=== PATIENT | female | born 2000 | race Caucasian/White ===

== ENCOUNTER 2020-06-26 18:32 | Emergency (ER) | payer OTHER ==
[2020-06-26] MEDS ORDERED: DIPH,PERTUS(ACELL)TETVAC-LF 0.5 ML VIAL IM ONE (18:50)
[2020-06-26] MEDS ORDERED: LIDOCAINE 1% INJ 10MG/ML (20 ML MDV) SQ ONE (18:50)
--- NOTE | 2020-06-26 19:44 | ED ---
Wound/Laceration HPI - General Chief Complaint: Wound/Laceration Stated Complaint: Cut leg Source: patient, RN notes reviewed, old records reviewed Mode of arrival: ambulatory Limitations: no limitations - History of Present Illness Initial Comments: 20-year-old female presents return today with a laceration of her right thigh. Patient reports that she cut it on a metal sheets. She reports that it was duct work that her boyfriend was trying to place in the basement. She reports that the duct work came down and for cut her leg. Her tetanus shot is not up-to-date. She reports normal sensation to leg and full rom of leg. - Related Data Allergies Allergy/AdvReac Type Severity Reaction Status Date / Time No Known Allergies Allergy Verified 06/26/20 18:36 Review of Systems ROS Statement: Those systems with pertinent positive or pertinent negative responses have been documented in the HPI. ROS Other: All systems not noted in ROS Statement are negative. Past Medical History Past Medical History: No Reported History History of Any Multi-Drug Resistant Organisms: None Reported Past Surgical History: No Surgical Hx Reported Smoking Status: Never smoker Past Alcohol Use History: None Reported Past Drug Use History: None Reported General Exam - General Exam Comments Initial Comments: 20-year-old female. Alert and oriented. No distress. Limitations: no limitations General appearance: alert, in no apparent distress Head exam: Present: atraumatic, normocephalic, normal inspection Eye exam: Present: normal appearance, PERRL, EOMI. Absent: scleral icterus, conjunctival injection, periorbital swelling ENT exam: Present: normal exam, mucous membranes moist Neck exam: Present: normal inspection. Absent: tenderness, meningismus, lymphadenopathy Respiratory exam: Present: normal lung sounds bilaterally. Absent: respiratory distress, wheezes, rales, rhonchi, stridor Cardiovascular Exam: Present: regular rate, normal rhythm, normal heart sounds. Absent: systolic murmur, diastolic murmur, rubs, gallop, clicks Extremities exam: Present: normal inspection, full ROM, normal capillary refill, other (Patient is a 4 cm laceration over the right anterior thigh. Full range motion of the knee noted.). Absent: tenderness, pedal edema, joint swelling, calf tenderness Back exam: Present: normal inspection Course Vital Signs 06/26/20 06/26/20 18:34 19:54 Temperature 98.7 F 98.4 F Pulse Rate 90 71 Respiratory 20 18 Rate Blood Pressure 122/78 122/72 O2 Sat by Pulse 99 97 Oximetry Procedures - Laceration Laceration #1 Site: lower extremity (Right thigh) Size (cm): 4 Depth: simple, single layer Anesthetic Used: lidocaine 1% Anesthesia Technique: local infiltration Amount (mls): 8 Pre-repair: wound explored, irrigated extensively Type of Sutures: nylon Size of Sutures: 5-0 Number of Sutures: 8 Technique: simple, interrupted Patient Tolerated Procedure: well, no complications Medical Decision Making - Medical Decision Making 20-year-old female presents for shortness. Laceration of the right thigh. She was cut with metal sheet. She was given tetanus shot. Wound was thoroughly irrigated and closed with 8 sutures. Discussed monitoring for infection. All questions were answered. Disposition Clinical Impression: Leg laceration Disposition: HOME SELF-CARE Condition: Good Instructions (If sedation given, give patient instructions): Care For Your Stit ches (ED) Additional Instructions: Please return to the emergency room in 8-10 days to have sutures removed. Please leave wound covered for the first 24-48 hours and then leave open to air after that time. Please use clean soap and water to clean the suture area to prevent scabbing over the top of your sutures. Please watch for any signs of infection which may include but not limited to increased pain, swelling, redness, fever or chills. Please return to the emergency room if any signs of infection do occur. Please return to the emergency room for any other concerns or complications. Is patient prescribed a controlled substance at d/c from ED?: No Referrals: Chris Gonzales DO [Primary Care Provider] - 1-2 days Time of Disposition: 19:44
[2020-06-26 19:54] VITALS: BP 122/72; PULSE 71; RESP 18; TEMP 98.4
== END 2020-06-26 19:54 | disposition home or self-care (01) ==
LOC: EC 18:32
DX: S71.111A Laceration without foreign body, right thigh, initial encounter (principal); Z23 Encounter for immunization; W26.8XXA Contact with other sharp object(s), not elsewhere classified, initial encounter; Y93.89 Activity, other specified; Y92.009 Unspecified place in unspecified non-institutional (private) residence as the place of occurrence of the external cause
CPT/HCPCS: 90715; 99283; 90471; 12002; J2001

== ENCOUNTER 2022-07-09 07:04 | Inpatient (IN) | payer BC, OTHER ==
[2022-07-09] MEDS ORDERED: KETOROLAC 15 MG/ML 1 ML VIAL IVP STA (07:56)
[2022-07-09] MEDS ORDERED: SODIUM CHLORIDE 0.9% 1,000 ML IV STA (07:56)
[2022-07-09] MEDS ORDERED: ONDANSETRON 4 MG/2 ML VIAL IVP STA (07:57)
[2022-07-09 08:00] LABS: Basophils % (A) 0 %; Eosinophils # (A) 0.1 k/uL (0-0.7); Eosinophils % (A) 1 %; HCT 40.2 % (34.0-46.0); Lymphocytes # (A) 0.9 k/uL (1.0-4.8); Lymphocytes % (A) 7 %; MCH 32.1 pg (25.0-35.0); MCHC 34.9 g/dL (31.0-37.0); MCV 91.8 fL (80.0-100.0); Mean Platelet Volume 6.5; Monocytes # (A) 0.5 k/uL (0-1.0); Monocytes % (A) 4 %; Neutrophils # (A) 11.5 k/uL (1.3-7.7); Neutrophils % (A) 88 %; Platelet Count 252 k/uL (150-450); RBC 4.37 m/uL (3.80-5.40); RDW 12.5 % (11.5-15.5); WBC 13.1 k/uL (3.8-10.6)
[2022-07-09 08:15] LABS: INR 0.9 (<1.2); Prothrombin Time 9.9 sec (9.0-12.0)
[2022-07-09 08:18] LABS: ALT 15 U/L (4-34); AST 28 U/L (14-36); African American GFR (CKD) >90 (>60 ml/min/1.73 sqM); Albumin 4.5 g/dL (3.5-5.0); Alkaline Phosphatase 75 U/L (38-126); Anion Gap 13 mmol/L; Blood Urea Nitrogen 11 mg/dL (7-17); Calcium 8.8 mg/dL (8.4-10.2); Carbon Dioxide 20 mmol/L (22-30); Chloride 108 mmol/L (98-107); Glucose 100 mg/dL (74-99); Lipase 42 U/L (23-300); Non-African American GFR(CKD) >90 (>60 ml/min/1.73 sqM); Potassium 4.1 mmol/L (3.5-5.1); Sodium 141 mmol/L (137-145); Total Bilirubin 0.4 mg/dL (0.2-1.3); Total Protein 7.4 g/dL (6.3-8.2)
--- NOTE | 2022-07-09 08:45 | ED ---
Abdominal Pain HPI - General Chief Complaint: Abdominal Pain Stated Complaint: Abd Pain Time Seen by Provider: 07/09/22 07:05 Source: patient, RN notes reviewed, old records reviewed Mode of arrival: ambulatory Limitations: no limitations - History of Present Illness Initial Comments: Patient is a healthy 22-year-old female returning to the emergency Department with complaints of right sided abdominal pain for 2 days. Patient states it started yesterday morning, has been increasing in intensity throughout the day so she came in for evaluation. She did have nausea and vomiting this morning. Patient does admit to drinking alcohol yesterday however her belly pain started before this. She denies any surgical history of her abdomen. She denies being however states is always a possibility. He denies any fevers or chills, no chest pain or shortness of breath. She admits to normal bowel movements. He denies any radiation of this pain. Currently rates the pain about a 6/10. Patient has no further complaints. - Related Data Home Medications Medication Instructions Recorded Confirmed No Known Home Medications 07/09/22 07/09/22 Allergies Allergy/AdvReac Type Severity Reaction Status Date / Time No Known Allergies Allergy Verified 07/09/22 09:11 Review of Systems ROS Statement: Those systems with pertinent positive or pertinent negative responses have been documented in the HPI. ROS Other: All systems not noted in ROS Statement are negative. Past Medical History Past Medical History: No Reported History History of Any Multi-Drug Resistant Organisms: None Reported Past Surgical History: No Surgical Hx Reported Past Psychological History: No Psychological Hx Reported Smoking Status: Never smoker Past Alcohol Use History: None Reported Past Drug Use History: None Reported General Exam - General Exam Comments Initial Comments: GENERAL: Patient is well-developed and well-nourished. Patient is nontoxic and in no acute distress. HEAD: Atraumatic, normocephalic. EYES: Pupils equal round and reactive to light, extraocular movements intact, sclera anicteric, conjunctiva are normal. Eyelids were unremarkable. ENT: Nares patent, oropharynx clear without exudates. Moist mucous membranes. NECK: Normal range of motion, supple without lymphadenopathy or JVD. LUNGS: Unlabored respirations. Breath sounds clear to auscultation bilaterally and equal. No wheezes rales or rhonchi. HEART: Regular rate and rhythm without murmurs, rubs or gallops. ABDOMEN: Soft, tender to palpation of the right lower quadrant, positive guarding and rebound. normoactive bowel sounds. No masses appreciated. : Deferred MUSCULOSKELETAL: Normal extremities with adequate strength and normal range of motion, no pitting or edema. No clubbing or cyanosis. NEUROLOGICAL: Patient is alert and oriented x 3. Symmetrical smile. Normal speech, normal gait. PSYCH: Normal mood, normal affect. SKIN: Warm, Dry, normal turgor, no rashes or lesions noted. Limitations: no limitations Course Vital Signs 07/09/22 07/09/22 07:08 09:33 Temperature 98.7 F Pulse Rate 112 H 92 Respiratory 18 15 Rate Blood Pressure 125/75 120/76 O2 Sat by Pulse 99 98 Oximetry Medical Decision Making - Medical Decision Making Patient is a 22-year-old female here with right lower quadrant pain, nausea and vomiting 2 days. No surgical history. Laboratory studies show a leukocytosis at 13.1, lactic acid is normal. CT the abdomen and pelvis shows findings compatible with acute appendicitis with a 9 mm appendicolith at the base of the appendix. Moderate severe surrounding inflammatory change. I spoke with Dr. Arias who accepts admission. We'll keep patient NPO with plans for surgery later this afternoon. We'll give dose of Zosyn. - Lab Data Result diagrams: 07/09/22 07:41 07/09/22 07:41 Lab Results 07/09/22 07/09/22 07/09/22 Range/Units 07:41 07:41 07:41 WBC 13.1 H (3.8-10.6) k/uL RBC 4.37 (3.80-5.40) m/uL Hgb 14.0 (11.4-16.0) gm/dL Hct 40.2 (34.0-46.0) % MCV 91.8 (80.0-100.0) fL MCH 32.1 (25.0-35.0) pg MCHC 34.9 (31.0-37.0) g/dL RDW 12.5 (11.5-15.5) % Plt Count 252 (150-450) k/uL MPV 6.5 Neutrophils % 88 % Lymphocytes % 7 % Monocytes % 4 % Eosinophils % 1 % Basophils % 0 % Neutrophils # 11.5 H (1.3-7.7) k/uL Lymphocytes # 0.9 L (1.0-4.8) k/uL Monocytes # 0.5 (0-1.0) k/uL Eosinophils # 0.1 (0-0.7) k/uL Basophils # 0.0 (0-0.2) k/uL PT 9.9 (9.0-12.0) sec INR 0.9 (<1.2) APTT 27.0 (22.0-30.0) sec Sodium 141 (137-145) mmol/L Potassium 4.1 (3.5-5.1) mmol/L Chloride 108 H (98-107) mmol/L Carbon Dioxide 20 L (22-30) mmol/L Anion Gap 13 mmol/L BUN 11 (7-17) mg/dL Creatinine 0.65 (0.52-1.04) mg/dL Est GFR (CKD-EPI)AfAm >90 (>60 ml/min/1.73 sqM) Est GFR (CKD-EPI)NonAf >90 (>60 ml/min/1.73 sqM) Glucose 100 H (74-99) mg/dL Plasma Lactic Acid Asael (0.7-2.0) mmol/L Calcium 8.8 (8.4-10.2) mg/dL Total Bilirubin 0.4 (0.2-1.3) mg/dL AST 28 (14-36) U/L ALT 15 (4-34) U/L Alkaline Phosphatase 75 (38-126) U/L Total Protein 7.4 (6.3-8.2) g/dL Albumin 4.5 (3.5-5.0) g/dL Lipase 42 (23-300) U/L 07/09/22 Range/Units 08:13 WBC (3.8-10.6) k/uL RBC (3.80-5.40) m/uL Hgb (11.4-16.0) gm/dL Hct (34.0-46.0) % MCV (80.0-100.0) fL MCH (25.0-35.0) pg MCHC (31.0-37.0) g/dL RDW (11.5-15.5) % Plt Count (150-450) k/uL MPV Neutrophils % % Lymphocytes % % Monocytes % % Eosinophils % % Basophils % % Neutrophils # (1.3-7.7) k/uL Lymphocytes # (1.0-4.8) k/uL Monocytes # (0-1.0) k/uL Eosinophils # (0-0.7) k/uL Basophils # (0-0.2) k/uL PT (9.0-12.0) sec INR (<1.2) APTT (22.0-30.0) sec Sodium (137-145) mmol/L Potassium (3.5-5.1) mmol/L Chloride (98-107) mmol/L Carbon Dioxide (22-30) mmol/L Anion Gap mmol/L BUN (7-17) mg/dL Creatinine (0.52-1.04) mg/dL Est GFR (CKD-EPI)AfAm (>60 ml/min/1.73 sqM) Est GFR (CKD-EPI)NonAf (>60 ml/min/1.73 sqM) Glucose (74-99) mg/dL Plasma Lactic Acid Asael 1.6 (0.7-2.0) mmol/L Calcium (8.4-10.2) mg/dL Total Bilirubin (0.2-1.3) mg/dL AST (14-36) U/L ALT (4-34) U/L Alkaline Phosphatase (38-126) U/L Total Protein (6.3-8.2) g/dL Albumin (3.5-5.0) g/dL Lipase (23-300) U/L Disposition Clinical Impression: Acute appendicitis Disposition: ADMITTED IP TO THIS [facility] Condition: Stable Referrals: None,Stated [Primary Care Provider] - 1-2 days Decision Date: 07/09/22 Decision Time: 09:45
--- NOTE | 2022-07-09 09:17 | CT ---
EXAMINATION TYPE: CT abdomen pelvis w con DATE OF EXAM: 07/09/2022 COMPARISON: NONE HISTORY: 22-year-old female with right lower quadrant pain with nausea and vomiting TECHNIQUE: Contiguous axial scanning of the abdomen and pelvis following administration of 100 ml Iso soy 300 IV contrast. Delayed images through the kidneys and coronal/sagittal reconstructions perform ed. CT DLP: 790.4 mGycm Automated exposure control for dose reduction was used. FINDINGS: Normal size without pericardial effusion. Lung bases clear without pleural effusion. Liver borderline enlarged at 17.8 cm. No focal lesion. The venous system is patent. No biliary ductal dilatation. Gallbladder, adrenal glands, kidneys, spleen, and pancreas within normal limits. No dilated small bowel or free air. There is a 9 mm stone at the base of the appendix. The appendix is fluid-filled, dilated up to 1.2 cm , and inflamed. Moderate to severe surrounding inflammatory fat stranding. Some adjacent right lower quadrant reactive mesenteric nodes measuring up to 1.2 cm. Mild stool burden. There is [id number] pelvic free fluid that in part be physiologic. Tiny phle bolith right side of the pelvis. Uterus anteverted. Both ovaries are visualized. There is a crenulate d peripherally enhancing 1.9 cm cyst right ovary suggesting a corpus luteum. 1.9 cm dominant follicle left ovary. Arcuate configuration of the uterus. Bones: No osseous destructive process. Mild degenerative disc disease L5-S1 suggested. IMPRESSION: FINDINGS COMPATIBLE WITH ACUTE APPENDICITIS WITH A 9 MM APPENDICOLITH AT THE BASE OF THE APPENDIX. MO DERATE TO SEVERE SURROUNDING INFLAMMATORY CHANGE AND MILD PELVIC FREE FLUID. NO FREE AIR OR ABSCESS.
[2022-07-09] MEDS ORDERED: NALOXONE 0.4 MG/ML 1 ML VIAL IV PRN (09:42)
[2022-07-09] MEDS ORDERED: PIPERACILLIN-TAZOBACTAM 3.375 GM in SODIUM CHLORIDE 0.9% 100 ML IVPB STA (09:43)
[2022-07-09 09:56] LABS: Appearance,Urine Clear (Clear); Bilirubin,Urine Negative (Negative); Blood,Urine Negative (Negative); Color,Urine Light Yellow; Glucose,Urine (UA) Negative (Negative); Ketones,Urine 2+ (Negative); Leukocyte Esterase,Urine Negative (Negative); Nitrite,Urine Negative (Negative); Protein,Urine Trace (Negative); Urobilinogen,Urine <2.0 mg/dL (<2.0)
[2022-07-09 10:15] LABS: Specific Gravity,Urine >1.050 (1.001-1.035)
[2022-07-09] MEDS: SODIUM CHLORIDE 0.9% 1,000 ML IV SCH (10:40)
[2022-07-09] MEDS: ONDANSETRON 4 MG/2 ML VIAL IVP PRN ×2 (12:29→21:50)
[2022-07-09] MEDS: MORPHINE SULFATE 4 MG/ML SYRINGE IV PRN ×2 (12:30→16:41)
[2022-07-09] MEDS ORDERED: ONDANSETRON 4 MG/2 ML VIAL IVP ONE (14:28)
[2022-07-09] MEDS ORDERED: DEXAMETHASONE SOD PHOSPHATE 4 MG/ML 1 ML VIAL IV ONE (14:28)
--- NOTE | 2022-07-09 14:29 | P.GSHP ---
History of Present Illness H&P Date: 07/09/22 CHIEF COMPLAINT: Right lower quadrant abdominal pain with appendicitis for over 1 day. HISTORY OF PRESENT ILLNESS: The patient is a previously healthy 22-year-old female who presents with over 1.5 day history of periumbilical with right lower quadrant abdominal pain that is crampy dull ache in nature. No reports of prior abdominal pain. She presented with CT abdomen and pelvis consistent with dilated appendix suspicious for appendicitis hence general surgery admission. PAST MEDICAL HISTORY: See list and reviewed PAST SURGICAL HISTORY: See list and reviewed CURRENT MEDICATIONS: See list and reviewed ALLERGIES: See list and reviewed SOCIAL HISTORY: See list and reviewed FAMILY HISTORY: See list and reviewed REVIEW OF ORGAN SYSTEMS: CONSTITUTIONAL: Present fever, no chills. Denies recent weight loss. HEENT: Denies any trouble with vision, hearing or nosebleeds. No difficulty swallowing. LYMPHATIC: The patient denies any lumps and bumps around the neck. ENDOCRINE: Denies any thyroid disorders. Denies any blood sugar glucose intolerance. RESPIRATORY: Denies shortness of breath including chronic cough. CARDIOVASCULAR: Denies history of chest pain with exertion. GASTROINTESTINAL: Denies regurgitation of bile at night as well as intermittent nausea. No blood in stools. GENITOURINARY: Denies any blood in urine or increased urinary frequency. MUSCULOSKELETAL: Denies current joint arthritis. NEUROLOGIC: Denies any numbness or tingling along the distal extremities. No seizure disorders or headaches. PSYCHIATRIC: Denies any depression or suicidal ideation. HEMATOLOGIC: Denies any abnormal bleeding or bruising. PHYSICAL EXAMINATION: VITALS: Reviewed. GENERAL: Well-developed and in no acute distress. Pleasant. HEENT: No sclera icterus. Extraocular movements grossly intact. Moist buccal mucosa. Head is atraumatic, normocephalic. Hears conversational speech. No nasal drainage. NECK: Supple without lymphadenopathy. No JV distention. CHEST: Non-labored respirations and equal bilateral excursions. CARDIOVASCULAR: Regular rate and rhythm. Palpable 2+ radial pulses. ABDOMEN: Soft, tender at the right lower quadrant without guarding. MUSCULOSKELETAL: No clubbing, cyanosis or edema. NEUROLOGIC: No focal or lateralizing signs. PSYCH: Appropriate affect. Alert and oriented to person, place and time. SKIN: Well perfused. Good skin turgor. LABS: Reviewed. White blood cell count elevated STUDIES: CT of the abdomen and pelvis reviewed with findings consistent with appendicitis and appendicolith ASSESSMENT: 1. Right lower quadrant pain. 2. Appendicitis with sepsis 3. Leukocytosis. PLAN: 1. I have discussed benefits and risks of robotic appendectomy. 2. Bilateral SCDs. 3. Antibiotics intravenous Thank you very much for allowing me to participate in the care of your patient. Past Medical History Past Medical History: No Reported History History of Any Multi-Drug Resistant Organisms: None Reported Past Surgical History: No Surgical Hx Reported Past Psychological History: No Psychological Hx Reported Smoking Status: Never smoker Past Alcohol Use History: None Reported Past Drug Use History: None Reported Medications and Allergies Home Medications Medication Instructions Recorded Confirmed Type No Known Home Medications 07/09/22 07/09/22 History Allergies Allergy/AdvReac Type Severity Reaction Status Date / Time No Known Allergies Allergy Verified 07/09/22 09:11 Surgical - Exam Vital Signs Temp Pulse Resp BP Pulse Ox 98.7 F 112 H 18 125/75 99 07/09/22 07:08 07/09/22 07:08 07/09/22 07:08 07/09/22 07:08 07/09/22 07:08 Results - Labs 07/09/22 07:41 07/09/22 07:41 Abnormal Lab Results - Last 24 Hours (Table) 07/09/22 07/09/22 07/09/22 Range/Units 07:41 07:41 09:00 WBC 13.1 H (3.8-10.6) k/uL Neutrophils # 11.5 H (1.3-7.7) k/uL Lymphocytes # 0.9 L (1.0-4.8) k/uL Chloride 108 H (98-107) mmol/L Carbon Dioxide 20 L (22-30) mmol/L Glucose 100 H (74-99) mg/dL Ur Specific Nogal >1.050 H (1.001-1.035) Urine Protein Trace H (Negative) Urine Ketones 2+ H (Negative) Diabetes panel 07/09/22 Range/Units 07:41 Sodium 141 (137-145) mmol/L Potassium 4.1 (3.5-5.1) mmol/L Chloride 108 H (98-107) mmol/L Carbon Dioxide 20 L (22-30) mmol/L BUN 11 (7-17) mg/dL Creatinine 0.65 (0.52-1.04) mg/dL Glucose 100 H (74-99) mg/dL Calcium 8.8 (8.4-10.2) mg/dL AST 28 (14-36) U/L ALT 15 (4-34) U/L Alkaline Phosphatase 75 (38-126) U/L Total Protein 7.4 (6.3-8.2) g/dL Albumin 4.5 (3.5-5.0) g/dL Calcium panel 07/09/22 Range/Units 07:41 Calcium 8.8 (8.4-10.2) mg/dL Albumin 4.5 (3.5-5.0) g/dL Pituitary panel 07/09/22 Range/Units 07:41 Sodium 141 (137-145) mmol/L Potassium 4.1 (3.5-5.1) mmol/L Chloride 108 H (98-107) mmol/L Carbon Dioxide 20 L (22-30) mmol/L BUN 11 (7-17) mg/dL Creatinine 0.65 (0.52-1.04) mg/dL Glucose 100 H (74-99) mg/dL Calcium 8.8 (8.4-10.2) mg/dL Adrenal panel 07/09/22 Range/Units 07:41 Sodium 141 (137-145) mmol/L Potassium 4.1 (3.5-5.1) mmol/L Chloride 108 H (98-107) mmol/L Carbon Dioxide 20 L (22-30) mmol/L BUN 11 (7-17) mg/dL Creatinine 0.65 (0.52-1.04) mg/dL Glucose 100 H (74-99) mg/dL Calcium 8.8 (8.4-10.2) mg/dL Total Bilirubin 0.4 (0.2-1.3) mg/dL AST 28 (14-36) U/L ALT 15 (4-34) U/L Alkaline Phosphatase 75 (38-126) U/L Total Protein 7.4 (6.3-8.2) g/dL Albumin 4.5 (3.5-5.0) g/dL
[2022-07-09] MEDS ORDERED: HEPARIN SODIUM,PORCINE/PF 5,000 UNIT/0.5 ML SYRINGE SQ PRN (17:25)
[2022-07-09] MEDS ORDERED: SCOPOLAMINE 1 MG/72 HR PATCH TRANSDERM STA (17:26)
[2022-07-09] MEDS ORDERED: ACETAMINOPHEN IV (For NPO) 1,000 MG in EMPTY BAG 1 BAG IVPB STA (19:23)
[2022-07-09] MEDS ORDERED: LACTATED RINGERS 1,000 ML IV ONE ×2 (21:20)
[2022-07-09] MEDS ORDERED: MIDAZOLAM 2 MG/2 ML VIAL IVP ONE (21:20)
[2022-07-09] MEDS ORDERED: ROCURONIUM 10 MG/ML (5 ML VIAL) IV ONE (22:22)
[2022-07-09] MEDS ORDERED: MIDAZOLAM 2 MG/2 ML VIAL ONE (22:22)
[2022-07-09] MEDS ORDERED: fentaNYL (PF) 50 MCG/ML 2 ML AMP ONE (22:22)
[2022-07-09] MEDS ORDERED: SUCCINYLCHOLINE CHLORIDE 200 MG/10 ML VIAL IV ONE (22:22)
[2022-07-09] MEDS ORDERED: KETOROLAC 15 MG/ML 1 ML VIAL ONE (22:22)
[2022-07-09] MEDS ORDERED: PROPOFOL 10 MG/ML 20 ML VIAL IV ONE (22:22)
[2022-07-09] MEDS ORDERED: LIDOCAINE 2% INJ 20 MG/ML (2 ML VIAL) ONE (22:22)
[2022-07-09] MEDS ORDERED: DEXAMETHASONE SOD PHOSPHATE 10 MG/ML 1 ML VIAL ONE (22:22)
[2022-07-09] MEDS ORDERED: HYDROmorphone (PF) 1 MG/ML ONE (22:22)
[2022-07-09] MEDS ORDERED: BUPIVACAIN-EPI 0.25%-1:200,000 30 ML VIAL SQ ONE (23:00)
[2022-07-09] MEDS ORDERED: TRIMETHOBENZAMIDE 100 MG/ML 2 ML VIAL IM PRN (23:52)
[2022-07-09] MEDS ORDERED: PROCHLORPERAZINE INJ 10 MG/2 ML VIAL IVP PRN (23:52)
--- NOTE | 2022-07-09 23:52 | P.OP ---
Date of Procedure: 07/09/22 Description of Procedure: SURGEON: AYESHA SILVA MD Preoperative Diagnosis: 1. Acute appendicitis Postoperative Diagnosis: 1. Gangrenous acute ruptured retrocecal appendicitis with localized peritonitis Procedure(s) Performed: 1. Robotic-assisted daVinci Xi laparoscopic lysis of adhesions over 1 hour 2. Robotic-assisted daVinci Xi laparoscopic appendectomy Anesthesia: GETA, local Estimated Blood Loss (ml): 5 Pathology: other (appendix, aerobic and anerobic culture of peritoneal fluid f rom peritonitis) Condition: stable Disposition: floor Operative Findings: 1. Localized abscess over 10-mL drained right lower quadrant 2. Gangrenous ruptured retrocecal purulent appendicitis tip of the appendix 3. Abdomen irrigated with 1000-mL normal saline INDICATIONS: The patient is a 22-year-old female who presents with acute appendicitis including fevers and peritonitis consistent with sepsis. Surgical intervention was described in detail. Patient requested robotic-assisted technique. Benefits and risks, including infection, open surgery, and possibility for additional surgery was discussed at length. Informed consent was obtained. All questions of the patient and family were answered. DESCRIPTION: The patient was transferred to the operating room and placed in supine position. The patient had previously voided. The abdomen was then prepped and draped in standard sterile fashion as Ioban was placed along the abdomen to minimize any contamination of skin floor. After a timeout protocol was performed, attention was then brought to the left upper quadrant whereby a 0 degree 5 mm laparoscopic trocar entry was performed. The abdominal cavity was entered and insufflated to 15 mmHg pressure, which was tolerated well. Diagnostic laparoscopy demonstrated no injury to bowel, viscera or mesentery. Adhesions were confirmed of the right lower quadrant of omentum, small bowel to the abdominal wall. Localized abscess was found. Next a robotic 12-mm trocar was placed along the left upper quadrant after exchanging the 5 mm trocar. A 8 mm port was placed along the left lower quadrant and another 8-mm port left lateral abdominal wall. Ports were placed 10 cm apart from each other including 15-20 cm away from the target anatomy of the right pelvis. The patient was then placed in Trendelenburg position, at least 14 and right side up at least 7. The robotic da Chelita XI system was primed and docked from the left side of the patient. Using atraumatic graspers and vessel sealer, the robotic system was docked and primed as described. Instruments were interchanged by the traffic assistant including graspers, robotic stapler and vessel sealer. Next, attention was brought to identify the cecum. A systematic view within the abdominal cavity was started with the small bowel which was remarkable turbid peritoneal fluid and localized abscess of the right upper quadrant. The base of the cecum was unremarkable. The appendix coursed retrocecal towards the upper abdomen with the tip of the gallbladder. The appendix was ruptured at the tip of the appendix. The abscess of 20-mL was aspirated from the abdomen. Extensive lysis of adhesions over 1 hour was used to dissect the appendix from surrounding tissues. Singular 45 mm blue robotic staple load was fired along the base of the appendix. The staple line was hemostatic and viable. Hemostasis was checked prior to undocking the robot. The abdomen was irrigated with 1000 mL normal saline to the aspirant was clear. The robot was undocked. I re-scrubbed into the case. The specimen was removed from the abdominal cavity with an Endo Catch bag through the 12 mm trocar at the left upper quadrant. All instruments and pneumoperitoneum were evacuated from the abdominal cavity. Local anesthetic was infiltrated to all wounds for postop analgesia. All incisions were also cleansed with diluted hydrogen peroxide. The patient had tolerated the procedure well. The patient was extubated successfully. The patient was transferred to the postanesthesia care unit in stable condition.
[2022-07-09] MEDS ORDERED: HYDROmorphone 1 MG/ML 1 ML SYRINGE IVP PRN (23:53)
[2022-07-10] MEDS: LACTATED RINGERS 1,000 ML IV SCH ×2 (00:43→14:41)
[2022-07-10] MEDS: SODIUM CHLORIDE 0.9% 1,000 ML IV SCH ×3 (00:43→17:09)
[2022-07-10] MEDS: KETOROLAC 15 MG/ML 1 ML VIAL IVP SCH ×5 (01:36→23:52)
[2022-07-10] MEDS: ACETAMINOPHEN IV (For NPO) 1,000 MG in EMPTY BAG 1 BAG IVPB SCH ×4 (03:46→17:26)
[2022-07-10] MEDS ORDERED: HYDROmorphone 0.5 MG/0.5 ML SYRINGE IVP PRN (07:00)
[2022-07-10] MEDS: HEPARIN SODIUM,PORCINE/PF 5,000 UNIT/0.5 ML SYRINGE SQ SCH ×2 (08:43→20:39)
[2022-07-10 09:12] LABS: Basophils # (A) 0.03 X 10*3/uL (0.00-0.10); Basophils % (A) 0.2 %; Eosinophils # (A) 0 X 10*3/uL (0.04-0.35); Eosinophils % (A) 0 %; HCT 35.8 % (37.2-46.3); HGB 11.9 g/dL (12.0-15.0); Immature Grans, Automated 0.4 %; Lymphocytes # (A) 0.71 X 10*3/uL (0.90-5.00); Lymphocytes % (A) 4.4 %; MCH 30.8 pg (27.0-32.0); MCHC 33.2 g/dL (32.0-37.0); MCV 92.7 fL (80.0-97.0); Mean Platelet Volume 9.7 fL (9.5-12.2); Monocytes % (A) 4.4 %; NRBC Per 100 WBC 0 /100 WBCS (0.0-0.0); Neutrophils % (A) 90.6 %; Platelet Count 199 X 10*3/uL (140-440); RBC 3.86 X 10*6/uL (4.10-5.20); RDW 12.2 % (11.5-14.5); WBC 16.01 X 10*3/uL (4.50-10.00)
--- NOTE | 2022-07-10 13:05 | P.PN ---
Subjective Progress Note Date: 07/10/22 CHIEF COMPLAINT: Appendicitis HISTORY OF PRESENT ILLNESS: Patient is postop day #1 status post robotic-as sisted laparoscopic lysis of adhesions and laparoscopic appendectomy for gangrenous acute ruptured retrocecal appendicitis with localized peritonitis. Patient sitting in bed comfortably. Her pain is controlled. She is tolerating clear liquid diet. Afebrile. WBC is 13.1 up to 16 hemoglobin 11.9 platelets 199 culture results are pending PHYSICAL EXAM: VITAL SIGNS: Reviewed GENERAL: Well-developed in no acute distress. HEENT: No sclera icterus. Extraocular movements grossly intact. Moist buccal mucosa. Head is atraumatic, normocephalic. Hears conversational speech. No nasal drainage. NECK: Supple without lymphadenopathy. CHEST: Non-labored respirations and equal bilateral excursions. CARDIOVASCULAR: Palpable 2+ radial pulses. ABDOMEN: Soft. Nondistended. MUSCULOSKELETAL: No clubbing or cyanosis. NEUROLOGIC: No focal or lateralizing signs. Cranial nerves II through XII grossly intact. PSYCH: Appropriate affect. Alert and oriented to person, place and time. SKIN: Well perfused. Good skin turgor. ASSESSMENT: 1. Gangrenous acute ruptured retrocecal appendicitis with localized peritonitis PLAN: -Continue IV antibiotics -Continue pain management -Continue IV fluids -Continue clear liquids -Encouraged patient to ambulate -Encouraged patient is incentive spirometer -Anticipate possible discharge on -GI prophylaxis Pepcid and DVT prophylaxis subcu heparin Physician Top Collar Baster note has been reviewed by physician. Signing provider agrees with the documented findings, assessment, and plan of care. Objective - Vital Signs Vital signs: Vital Signs Temp 97.5 F L 07/10/22 07:00 Pulse 73 07/10/22 07:00 Resp 14 07/10/22 07:00 BP 95/58 07/10/22 07:00 Pulse Ox 97 07/10/22 07:00 FiO2 Intake & Output 07/09/22 07/10/22 07/10/22 18:59 06:59 18:59 Intake Total 700 118 Output Total 5 Balance 695 118 Weight 72.575 kg 72.575 kg Intake: IV 700 Oral 118 Output: Estimated Blood Loss 5 Other: Voiding Method Toilet Toilet # Voids 1 1 - Labs CBC & Chem 7: 07/10/22 03:42 07/09/22 07:41 Labs: Abnormal Lab Results - Last 24 Hours (Table) 07/10/22 Range/Units 03:42 WBC 16.01 H (4.50-10.00) X 10*3/uL RBC 3.86 L (4.10-5.20) X 10*6/uL Hgb 11.9 L (12.0-15.0) g/dL Hct 35.8 L (37.2-46.3) % Immature Gran # 0.07 H (0.00-0.04) X 10*3/uL Neutrophils # 14.50 H (1.80-7.70) X 10*3/uL Lymphocytes # 0.71 L (0.90-5.00) X 10*3/uL Eosinophils # 0 L (0.04-0.35) X 10*3/uL Microbiology - Last 24 Hours (Table) 07/09/22 22:50 Wound Culture - Preliminary Appendix 07/09/22 22:50 Anaerobic Culture - Preliminary Appendix
[2022-07-10] MEDS: FAMOTIDINE 20 MG TAB PO SCH (20:39)
[2022-07-11] MEDS: SODIUM CHLORIDE 0.9% 1,000 ML IV SCH ×3 (03:59→21:24)
[2022-07-11] MEDS: KETOROLAC 15 MG/ML 1 ML VIAL IVP SCH ×3 (05:48→17:16)
[2022-07-11] MEDS: FAMOTIDINE 20 MG TAB PO SCH ×2 (08:39→21:22)
[2022-07-11] MEDS: HEPARIN SODIUM,PORCINE/PF 5,000 UNIT/0.5 ML SYRINGE SQ SCH ×2 (08:39→21:22)
[2022-07-11 09:21] LABS: Basophils # (A) 0.01 X 10*3/uL (0.00-0.10); Basophils % (A) 0.1 %; Eosinophils # (A) 0.02 X 10*3/uL (0.04-0.35); Eosinophils % (A) 0.2 %; HCT 30.4 % (37.2-46.3); HGB 10.2 g/dL (12.0-15.0); Immature Grans, Automated 0.4 %; Lymphocytes # (A) 1.53 X 10*3/uL (0.90-5.00); Lymphocytes % (A) 14.6 %; MCH 30.7 pg (27.0-32.0); MCHC 33.6 g/dL (32.0-37.0); MCV 91.6 fL (80.0-97.0); Mean Platelet Volume 9.6 fL (9.5-12.2); Monocytes # (A) 0.57 X 10*3/uL (0.20-1.00); Monocytes % (A) 5.5 %; NRBC Per 100 WBC 0 /100 WBCS (0.0-0.0); Neutrophils # (A) 8.28 X 10*3/uL (1.80-7.70); Neutrophils % (A) 79.2 %; Platelet Count 179 X 10*3/uL (140-440); RBC 3.32 X 10*6/uL (4.10-5.20); RDW 12.2 % (11.5-14.5); WBC 10.45 X 10*3/uL (4.50-10.00)
[2022-07-11] MEDS: PIPERACILLIN-TAZOBACTAM 3.375 GM in SODIUM CHLORIDE 0.9% 100 ML IVPB SCH ×2 (10:34→17:16)
[2022-07-11] MEDS: ACETAMINOPHEN TAB 500 MG TAB PO SCH ×2 (11:59→17:15)
[2022-07-11] MEDS: LACTATED RINGERS 1,000 ML IV SCH (14:38)
--- NOTE | 2022-07-11 15:43 | P.PN ---
Subjective Progress Note Date: 07/11/22 CHIEF COMPLAINT: Appendicitis HISTORY OF PRESENT ILLNESS: Patient is postop day #2 status post robotic-as sisted laparoscopic lysis of adhesions and laparoscopic appendectomy for gangrenous acute ruptured retrocecal appendicitis with localized peritonitis. Patient does complain of pain in the right lower abdomen. She reports that her pain is controlled. Denies any nausea or vomiting. She is having flatus. She tolerated a regular diet. Unfortunately patient did go 24 hours without IV antibiotics. Zosyn has been restarted this morning. She is afebrile. WBC did improve from 16 down to 10.45 hemoglobin is 10.2 platelets 179. Culture result growing gram-negative bacilli. PHYSICAL EXAM: VITAL SIGNS: Reviewed GENERAL: Well-developed in no acute distress. HEENT: No sclera icterus. Extraocular movements grossly intact. Moist buccal mucosa. Head is atraumatic, normocephalic. Hears conversational speech. No nasal drainage. NECK: Supple without lymphadenopathy. CHEST: Non-labored respirations and equal bilateral excursions. CARDIOVASCULAR: Palpable 2+ radial pulses. ABDOMEN: Soft. Nondistended. Incision sites clean dry and intact MUSCULOSKELETAL: No clubbing or cyanosis. NEUROLOGIC: No focal or lateralizing signs. Cranial nerves II through XII grossly intact. PSYCH: Appropriate affect. Alert and oriented to person, place and time. SKIN: Well perfused. Good skin turgor. ASSESSMENT: 1. Gangrenous acute ruptured retrocecal appendicitis with localized peritonitis PLAN: -IV Zosyn 3.375 g IV every 8 restarted this morning -Continue pain management -Added by mouth Tylenol scheduled -Repeat CBC in a.m. -Continue regular diet -Continue pain management -Encouraged patient to ambulate -Encouraged patient is incentive spirometer -Anticipate possible discharge on -GI prophylaxis Pepcid and DVT prophylaxis subcu heparin Physician Supervisor Sunglasses note has been reviewed by physician. Signing provider agrees with the documented findings, assessment, and plan of care. Objective - Vital Signs Vital signs: Vital Signs Temp 99 F 07/11/22 15:35 Pulse 94 07/11/22 15:35 Resp 15 07/11/22 15:35 BP 112/75 07/11/22 15:35 Pulse Ox 99 07/11/22 15:35 FiO2 Intake & Output 07/10/22 07/11/22 07/11/22 18:59 06:59 18:59 Intake Total 236 591 Balance 236 591 Intake: Oral 236 591 Other: Voiding Method Toilet Toilet # Voids 2 2 - Labs CBC & Chem 7: 07/11/22 04:43 07/09/22 07:41 Labs: Abnormal Lab Results - Last 24 Hours (Table) 07/11/22 Range/Units 04:43 WBC 10.45 H (4.50-10.00) X 10*3/uL RBC 3.32 L (4.10-5.20) X 10*6/uL Hgb 10.2 L (12.0-15.0) g/dL Hct 30.4 L (37.2-46.3) % Neutrophils # 8.28 H (1.80-7.70) X 10*3/uL Eosinophils # 0.02 L (0.04-0.35) X 10*3/uL Microbiology - Last 24 Hours (Table) 07/09/22 22:50 Gram Stain - Preliminary Appendix Wound Culture - Preliminary Gram Neg Bacilli
[2022-07-11] MEDS: LACTULOSE 20 GM/30 ML CUP PO SCH (21:23)
[2022-07-12] MEDS: PIPERACILLIN-TAZOBACTAM 3.375 GM in SODIUM CHLORIDE 0.9% 100 ML IVPB SCH ×2 (01:55→11:03)
[2022-07-12] MEDS: ACETAMINOPHEN TAB 500 MG TAB PO SCH ×2 (01:55→08:07)
[2022-07-12 01:58] VITALS: RESP 18
[2022-07-12 08:00] VITALS: BP 123/74; PULSE 86; TEMP 98.2
[2022-07-12] MEDS: LACTULOSE 20 GM/30 ML CUP PO SCH (08:03)
[2022-07-12] MEDS: FAMOTIDINE 20 MG TAB PO SCH (08:07)
[2022-07-12] MEDS: HEPARIN SODIUM,PORCINE/PF 5,000 UNIT/0.5 ML SYRINGE SQ SCH (08:08)
[2022-07-12] MEDS: SODIUM CHLORIDE 0.9% 1,000 ML IV SCH (08:08)
[2022-07-12 08:35] LABS: Basophils # (A) 0.01 X 10*3/uL (0.00-0.10); Basophils % (A) 0.1 %; Eosinophils # (A) 0.01 X 10*3/uL (0.04-0.35); Eosinophils % (A) 0.1 %; HCT 29.2 % (37.2-46.3); Immature Grans, Automated 0.2 %; Lymphocytes # (A) 1.19 X 10*3/uL (0.90-5.00); Lymphocytes % (A) 12.7 %; MCH 31.3 pg (27.0-32.0); MCHC 34.2 g/dL (32.0-37.0); MCV 91.3 fL (80.0-97.0); Mean Platelet Volume 9.5 fL (9.5-12.2); Monocytes # (A) 0.69 X 10*3/uL (0.20-1.00); Monocytes % (A) 7.4 %; NRBC Per 100 WBC 0 /100 WBCS (0.0-0.0); Neutrophils # (A) 7.44 X 10*3/uL (1.80-7.70); Neutrophils % (A) 79.5 %; Platelet Count 193 X 10*3/uL (140-440); RDW 12.2 % (11.5-14.5); WBC 9.36 X 10*3/uL (4.50-10.00)
[2022-07-12] MEDS: ONDANSETRON 4 MG/2 ML VIAL IVP PRN (08:40)
--- NOTE | 2022-07-12 12:54 | P.DS ---
Providers Date of admission: 07/09/22 23:46 Expected date of discharge: 07/12/22 Attending physician: Hillary Arias Primary care physician: Stated None Hospital Course: Discharge diagnosis 1. Gangrenous acute ruptured retrocecal appendicitis with localized peritonitis Hospital course The patient is a 22-year-old female who presents with acute appendicitis including fevers and peritonitis consistent with sepsis. Patient is status post robotic laparoscopic cholecystectomy and lysis of adhesions for Gangrenous acute ruptured retrocecal appendicitis with localized peritonitis. Patient reports her pain is controlled. She denies any nausea or vomiting. She is tolerating diet. Afebrile. White count has normalized. She is stable for discharge. Physician Classification Control Clerk note has been reviewed by physician. Signing provider agrees with the documented findings, assessment, and plan of care. Patient Condition at Discharge: Stable Plan - Discharge Summary New Discharge Prescriptions: New Simethicone [Gas-X] 125 mg PO AC-TID PRN #20 capsule PRN Reason: Pain Ibuprofen [Motrin] 600 mg PO Q8HR PRN #30 tab PRN Reason: Pain Acetaminophen Tab [Tylenol Tab] 1,000 mg PO Q6HR PRN #30 tablet PRN Reason: Pain Amoxic-Pot Clav 875-125Mg [Augmentin 875-125] 1 tab PO Q12HR 10 Days #20 tab Discharge Medication List Acetaminophen Tab [Tylenol Tab] 1,000 mg PO Q6HR PRN #30 tablet 07/09/22 [Rx] Ibuprofen [Motrin] 600 mg PO Q8HR PRN #30 tab 07/09/22 [Rx] Simethicone [Gas-X] 125 mg PO AC-TID PRN #20 capsule 07/09/22 [Rx] Amoxic-Pot Clav 875-125Mg [Augmentin 875-125] 1 tab PO Q12HR 10 Days #20 tab 07/12/22 [Rx] Follow up Appointment(s)/Referral(s): Hillary Arias MD [STAFF PHYSICIAN] - 07/26/22 None,Stated [Primary Care Provider] - 1-2 days Patient Instructions/Handouts: *Surgery [facility] - Managing Your Pain After Surgery Without Opioids, Laparoscopic Appendectomy (GEN) Activity/Diet/Wound Care/Special Instructions: No lifting over 10 pounds in 2 weeks until Jul 23. May shower. No bath tub soaks for two weeks until Jul 23. Diet as tolerated. Use Tylenol, simethicone and ibuprofen or Aleve scheduled for the next 24-48 hours for best pain relief. Use ice along incisions for today to prevent swelling. Discharge Disposition: HOME SELF-CARE
--- NOTE | 2022-07-13 14:11 | P.PN ---
Progress Note - Text Progress Note Date: 07/13/22 Final cultures reviewed demonstrating resistance to Augmentin. Patient notified of resistance. Augmentin discontinued. Patient placed on ciprofloxacin and Flagyl for which E. coli is sensitive.
== END 2022-07-12 13:47 | disposition home or self-care (01) | DRG 853 ==
LOC: EC 07:04 → 6NMEDSUR 09:56 → OBSVTOIN 23:46
PROVIDERS: ADMIT Surgery Plastic and Reconstructive Surgery; ATTEND Surgery Plastic and Reconstructive Surgery
PROC: 0DNW4ZZ Release Peritoneum, Percutaneous Endoscopic Approach (ICD-10-PCS; 2022-07-09)
PROC: 0W9G4ZZ Drainage of Peritoneal Cavity, Percutaneous Endoscopic Approach (ICD-10-PCS; 2022-07-09)
PROC: 8E0W4CZ Robotic Assisted Procedure of Trunk Region, Percutaneous Endoscopic Approach (ICD-10-PCS; 2022-07-09)
PROC: 0DTJ4ZZ Resection of Appendix, Percutaneous Endoscopic Approach (ICD-10-PCS; principal; 2022-07-09 11:55)
DX: A40.8 Other streptococcal sepsis (principal); K35.33 Acute appendicitis with perforation, localized peritonitis, and gangrene, with abscess; I96 Gangrene, not elsewhere classified; Z16.11 Resistance to penicillins; K66.0 Peritoneal adhesions (postprocedural) (postinfection); K38.1 Appendicular concretions; B96.20 Unspecified Escherichia coli [E. coli] as the cause of diseases classified elsewhere
CPT/HCPCS: 36415; 74177; 80053; 81003; 81025; 83605; 83690; 85025; 85610; 85730; 87070; 87075; 87077; 87186; 87205; 88304; 96365; 96375; 99285